=== PATIENT | female | born 1955 | race Caucasian/White ===

== ENCOUNTER 2018-11-03 11:28 | Day surgery (SDC) | payer MEDICAID ==
[~2018-11-03] VITALS: Ht 166.4 cm; Wt 80.0 kg
[2018-11-03 11:36] VITALS: BP 116/65
[2018-11-03] MEDS ORDERED: SUCR1ORA12 PO (12:04)
[2018-11-03] MEDS ORDERED: DOCU100C41 PO (12:05)
[2018-11-03] MEDS ORDERED: ALBU8.5H8 INH (12:06)
[2018-11-03] MEDS ORDERED: PANT-47 PO (12:06)
[2018-11-03] MEDS ORDERED: LIDOcaine Viscous 15ml cup ONE (12:17)
[2018-11-03] MEDS ORDERED: fentaNYL/PF 50MCG/1 ML 2ML syringe ONE (12:17)
[2018-11-03] MEDS ORDERED: MIDAZolam 5mg/5ml vial ONE (12:17)
[2018-11-03 12:57] VITALS: BP 130/72
[2018-11-03 13:07] VITALS: BP 132/74
[2018-11-03 13:17] VITALS: BP 119/66
[2018-11-03 13:27] VITALS: BP 130/84
== END 2018-11-03 13:30 | disposition home or self-care (01) ==
LOC: GI LAB 11:28
PROVIDERS: ATTEND Specialist
DX: K91.89 Other postprocedural complications and disorders of digestive system (principal); K31.4 Gastric diverticulum; K44.9 Diaphragmatic hernia without obstruction or gangrene; Z98.84 Bariatric surgery status
CPT/HCPCS: 43245; 99152; J2250; J3010; J7030; A4620; C1726

== ENCOUNTER 2018-11-30 09:24 | Day surgery (SDC) | payer MEDICAID ==
[~2018-11-30] VITALS: Ht 166.4 cm; Wt 81.2 kg
[2018-11-30] VITALS (9 sets, daily range): BP systolic 94–115; BP diastolic 55–69
[~2018-11-30 09:24] MED LIST: ALBU8.5H8 INH; ASCO500C15 PO; DOCU100C41 PO; FLUT1DIS4 INH; PANT-47 PO; SUCR1ORA12 PO; cefazolin/dext.iso 2gm/100 ML IV ONE; famotidine 20mg tablet PO ONE; ringers solution, lacted 1,000 ML IV SCH
[2018-11-30] MEDS ORDERED: albuterol 2.5 MG/3 ML nebule NEB ONE (10:40)
[2018-11-30 10:58] LABS: BASOPHILS # (AUTO) 0.1 X10'3 (0-0.2); BASOPHILS % (AUTO) 1.7 % (0-1); EOSINOPHILS # (AUTO) 0.1 X10'3 (0-0.9); EOSINOPHILS % (AUTO) 2.2 % (0-6); LYMPHOCYTES # (AUTO) 2.4 X10'3 (1.1-4.8); LYMPHOCYTES % (AUTO) 44.5 % (21-51); MEAN CORPUSCULAR HEMOGLOBIN 29.4 PG (27.0-31.0); MEAN CORPUSCULAR HGB CONC 33.3 g/dL (33.0-36.5); MEAN CORPUSCULAR VOLUME 88.4 FL (78-98); MEAN PLATELET VOLUME 7.5 FL (7.4-10.4); MONOCYTES # (AUTO) 0.4 X10'3 (0-0.9); NEUTROPHILS # (AUTO) 2.3 X10'3 (1.8-7.7); NEUTROPHILS % (AUTO) 43.6 % (42-75); PRE OP HEMATOCRIT 38.4 % (35.0-45.0); PRE OP HEMOGLOBIN 12.8 g/dL (12.0-16.0); PRE OP PLATELET COUNT 343 X10'3 (140-440); RED BLOOD COUNT 4.34 X10'6 (4.20-5.60); RED CELL DISTRIBUTION WIDTH 15.1 % (11.5-14.5)
[2018-11-30 11:09] LABS: ALBUMIN 3.2 G/DL (3.4-5.0); ALBUMIN/GLOBULIN RATIO 0.8 (1.1-1.5); ALKALINE PHOSPHATASE 89 IU/L (46-116); BLOOD UREA NITROGEN 10 MG/DL (7-18); BUN/CREATININE RATIO 12.8 (6.6-38.0); CALCIUM 9.1 MG/DL (8.5-10.1); CHLORIDE 108 MMOL/L (99-107); CREATININE 0.78 MG/DL (0.40-0.90); PRE OP ALT 8 U/L (30-65); PRE OP ANION GAP 7 (8-16); PRE OP AST 10 U/L (10-37); PRE OP BILIRUB, TOTAL 0.3 MG/DL (0.0-1.0); PRE OP GLUCOSE 89 MG/DL (70-104); PRE OP POTASSIUM 4.9 MMOL/L (3.4-5.1); PRE OP SODIUM 143 MMOL/L (135-145); TOTAL CARBON DIOXIDE 28.5 MMOL/L (24-32); TOTAL PROTEIN 7.3 G/DL (6.4-8.2); eGFR 75 ML/MIN
[2018-11-30 12:12] LABS: PLATELET ESTIMATE NORMAL; TOTAL CELLS COUNTED 100
[2018-11-30] MEDS ORDERED: sevoflurane 250ml liquid IH ONE (13:22)
[2018-11-30] MEDS ORDERED: midazolam 2 mg/2 ml injection ONE (13:23)
[2018-11-30] MEDS ORDERED: propofol inj 20 ML IV ONE (13:23)
[2018-11-30] MEDS ORDERED: fentaNYL/PF 50MCG/1 ML 2ML syringe ONE (13:23)
[2018-11-30] MEDS ORDERED: ringers solution, lacted 1,000 ML IV SCH (13:26)
[2018-11-30] MEDS ORDERED: meperidine/PF 25mg/ml syringe IV PRN ×3 (13:30)
[2018-11-30] MEDS ORDERED: ondansetron/PF 4mg/2ml inj IV PRN (13:30)
[2018-11-30] MEDS ORDERED: proCHLORperazine 10 MG/2 ml inj IV PRN (13:30)
[2018-11-30] MEDS ORDERED: morphine 4 MG/ML inj SYRINge IV PRN ×2 (13:30)
--- NOTE | 2018-11-30 14:02 | NUR ---
Received from OR via [facility] , accompanied by Anesthesiologist RAMBO and report given by Anesthesiolgist. PATIENT WITH 20G PIV IN LEFT UE RUNNING LR AT 100. DENIES PAIN. LARGE UMBILICAL DRESSING IS CDI. NO DRAINAGE PRESENT. 10L MASK ON WITH 100% SATURATIONS. VSS. Addendum: 11/30/18 at 1414 by Torin Camacho RN, RN Amended: Links added.
--- NOTE | 2018-11-30 15:22 | NUR ---
ALL DC CRITERIA HAS BEEN MET. IV TAKEN OUT WITHOUT COMPLICATIONS. ALL INSTRUCTIONS COVERED AND ALL QUESTIONS ANSWERED. DRESSINGS CDI. OUT VIA WHEELCHAIR TO PERSONAL VEHICLE WHERE PATIENT WAS SECURED IN AND DRIVEN HOME BY FAMILY. Addendum: 11/30/18 at 1532 by Torin Camacho RN, RN Amended: Links added.
== END 2018-11-30 15:22 | disposition home or self-care (01) ==
LOC: PAS 09:24
PROVIDERS: ATTEND Surgery
PROC: 0JB80ZZ Excision of Abdomen Subcutaneous Tissue and Fascia, Open Approach (ICD-10-PCS; principal; 2018-11-30 13:22)
DX: T81.31XA Disruption of external operation (surgical) wound, not elsewhere classified, initial encounter (principal); T81.89XA Other complications of procedures, not elsewhere classified, initial encounter; F32.9 Major depressive disorder, single episode, unspecified; E66.9 Obesity, unspecified; Y83.8 Other surgical procedures as the cause of abnormal reaction of the patient, or of later complication, without mention of misadventure at the time of the procedure; Z88.6 Allergy status to analgesic agent; F17.210 Nicotine dependence, cigarettes, uncomplicated; Z68.38 Body mass index [BMI] 38.0-38.9, adult; J44.9 Chronic obstructive pulmonary disease, unspecified
CPT/HCPCS: 10121; 36415; 80053; 85025; 93005; 94640; 94760; A6253; A6266; A6449; J0690; J2175; J2250; J2704; J3010; J7120; A7000

== ENCOUNTER 2019-04-19 07:42 | Day surgery (SDC) | payer MEDICAID ==
[2019-04-19] VITALS (11 sets, daily range): BP systolic 101–125; BP diastolic 58–77
[~2019-04-19] VITALS: Ht 165.1 cm; Wt 76.5 kg
[~2019-04-19 07:42] MED LIST changes: -ASCO500C15 PO; -cefazolin/dext.iso 2gm/100 ML IV ONE; -famotidine 20mg tablet PO ONE; -ringers solution, lacted 1,000 ML IV SCH
[2019-04-19] MEDS ORDERED: albuterol 2.5 MG/3 ML nebule NEB PRN (09:25)
[2019-04-19] MEDS ORDERED: famotidine 20mg tablet PO ONE (09:25)
[2019-04-19] MEDS ORDERED: cefazolin/dext.iso 2gm/100 ML IV ONE (09:30)
[2019-04-19 09:31] LABS: BASOPHILS # (AUTO) 0.1 X10'3 (0-0.2); BASOPHILS % (AUTO) 1.3 % (0-1); EOSINOPHILS # (AUTO) 0.2 X10'3 (0-0.9); EOSINOPHILS % (AUTO) 2.8 % (0-6); LYMPHOCYTES # (AUTO) 2.4 X10'3 (1.1-4.8); LYMPHOCYTES % (AUTO) 41.2 % (21-51); MEAN CORPUSCULAR HEMOGLOBIN 30.4 PG (27.0-31.0); MEAN CORPUSCULAR HGB CONC 33.4 g/dL (33.0-36.5); MEAN CORPUSCULAR VOLUME 90.9 FL (78-98); MEAN PLATELET VOLUME 7.3 FL (7.4-10.4); MONOCYTES # (AUTO) 0.4 X10'3 (0-0.9); MONOCYTES % (AUTO) 7.7 % (2-12); NEUTROPHILS # (AUTO) 2.7 X10'3 (1.8-7.7); PRE OP HEMATOCRIT 43.6 % (35.0-45.0); PRE OP HEMOGLOBIN 14.5 g/dL (12.0-16.0); PRE OP PLATELET COUNT 356 X10'3 (140-440); RED BLOOD COUNT 4.79 X10'6 (4.20-5.60); RED CELL DISTRIBUTION WIDTH 15.3 % (11.5-14.5)
[2019-04-19 09:43] LABS: ALBUMIN 3.5 G/DL (3.4-5.0); ALBUMIN/GLOBULIN RATIO 0.9 (1.1-1.5); ALKALINE PHOSPHATASE 85 IU/L (46-116); BLOOD UREA NITROGEN 10 MG/DL (7-18); CALCIUM 8.9 MG/DL (8.5-10.1); CHLORIDE 108 MMOL/L (99-107); CREATININE 0.83 MG/DL (0.40-0.90); PRE OP ALT 13 U/L (30-65); PRE OP ANION GAP 7 (8-16); PRE OP AST 9 U/L (10-37); PRE OP BILIRUB, TOTAL 0.3 MG/DL (0.0-1.0); PRE OP GLUCOSE 90 MG/DL (70-104); PRE OP POTASSIUM 4.8 MMOL/L (3.4-5.1); PRE OP SODIUM 142 MMOL/L (135-145); TOTAL CARBON DIOXIDE 27.1 MMOL/L (24-32); TOTAL PROTEIN 7.4 G/DL (6.4-8.2); eGFR 69 ML/MIN
[2019-04-19] MEDS ORDERED: ringers solution, lacted 1,000 ML IV SCH (12:12)
[2019-04-19] MEDS ORDERED: BUPIVAcaine/PF 2.5 mg/ml (0.25%) 30ml vial ONE (12:12)
[2019-04-19] MEDS ORDERED: meperidine/PF 25mg/ml syringe IV PRN ×2 (12:15)
[2019-04-19] MEDS ORDERED: morphine 4 MG/ML inj SYRINge IV PRN ×2 (12:15)
[2019-04-19] MEDS ORDERED: ondansetron/PF 4mg/2ml inj IV PRN (12:15)
[2019-04-19] MEDS ORDERED: proCHLORperazine 10 MG/2 ml inj IV PRN (12:15)
[2019-04-19] MEDS ORDERED: ondansetron/PF 4mg/2ml inj ONE (12:46)
[2019-04-19] MEDS ORDERED: sevoflurane 250ml liquid IH ONE (12:46)
[2019-04-19] MEDS ORDERED: midazolam 2 mg/2 ml injection ONE (12:51)
[2019-04-19] MEDS ORDERED: fentaNYL/PF 50MCG/1 ML 2ML syringe ONE (12:51)
[2019-04-19] MEDS ORDERED: LIDOcaine 2% (20mg/ml) 5ml vial ONE (12:52)
[2019-04-19] MEDS ORDERED: propofol inj 20 ML IV ONE (12:52)
[2019-04-19] MEDS ORDERED: dexamethasone sod phosphate 4mg/ml inj. ONE (13:09)
--- NOTE | 2019-04-19 13:31 | NUR ---
Received from OR via [facility], accompanied by Anesthesiologist DR BENJAMIN and report given by Anesthesiologist. PT DROWSY, DENIES PAIN, SMALL ISLAND DRSG COVERING ABDOMINAL INCISION, CDI. Addendum: 04/19/19 at 1446 by Laurel Ojeda RN Amended: Links added.
[2019-04-19] MEDS: meperidine/PF 25mg/ml syringe IV PRN ×2 (13:43→14:12)
--- NOTE | 2019-04-19 15:11 | NUR ---
D/C INSTRUCTIONS GONE OVER AND GIVEN TO PT WHO VERBALIZES UNDERSTANDING, PT D/CD TO HOME VIA W/C TO PRIVATE VEHICLE W/O INCIDENT. Addendum: 04/19/19 at 1534 by Laurel Ojeda RN Amended: Links added.
[2019-04-20] MEDS ORDERED: ringers solution, lacted 1,000 ML IV SCH (05:00)
== END 2019-04-19 15:11 | disposition home or self-care (01) ==
LOC: PAS 07:42
PROVIDERS: ATTEND Surgery
DX: T81.89XA Other complications of procedures, not elsewhere classified, initial encounter (principal); J44.9 Chronic obstructive pulmonary disease, unspecified; Z88.5 Allergy status to narcotic agent; Z88.8 Allergy status to other drugs, medicaments and biological substances; Z79.899 Other long term (current) drug therapy; Z86.19 Personal history of other infectious and parasitic diseases; Z87.891 Personal history of nicotine dependence; Y83.8 Other surgical procedures as the cause of abnormal reaction of the patient, or of later complication, without mention of misadventure at the time of the procedure; Y92.89 Other specified places as the place of occurrence of the external cause; F32.9 Major depressive disorder, single episode, unspecified; E66.9 Obesity, unspecified
CPT/HCPCS: 13160; 36415; 80053; 85025; 94640; J1100; J2001; J2175; J2250; J2405; J2704; J3010; J3490; A4618; A7000; J7120